=== PATIENT | female | born 1995 | race African-American/Black ===

== ENCOUNTER 2019-01-11 00:41 | Emergency (ER) | payer OTHER ==
[2019-01-11 00:48] VITALS: BP 150/70; TEMP 98.6
[2019-01-11] MEDS ORDERED: ZOFRAN ODT4 MG PO (01:17)
[2019-01-11 01:25] VITALS: PULSE 86
== END 2019-01-11 01:25 | disposition home or self-care (01) ==
LOC: COL.ER 00:41
DX: Z71.1 Person with feared health complaint in whom no diagnosis is made (principal)